=== PATIENT | female | born 1955 | race African-American/Black ===

== ENCOUNTER 2016-12-25 14:01 | Inpatient (IN) | payer MEDICARE, MEDICAID ==
[2016-12-25 15:38] LABS: #Basophils 0.1 thou/uL (0.0-0.2); #Eosinphils 0.2 thou/uL (0.0-0.7); #Lymphocytes 3.1 thou/uL (1.20-3.40); #Monocytes 0.9 thou/uL (0.11-0.59); #Neutrophils 4.1 thou/uL (1.40-6.50); %Basophils 0.7 % (0.0-1.0); %Eosinophils 2.6 % (0.0-10.0); %Lymphocytes 37.3 % (21.0-51.0); %Monocytes 10.4 % (0.0-10.0); Hematocrit 40.9 % (36.0-47.0); Mean Platelet Volume 8.2 fL (7.4-10.4); Red Blood Cell (RBC) Count 4.07 mill/uL (4.20-5.40); White Blood Cell (WBC) Count 8.4 thou/uL (4.8-10.8)
[2016-12-25 15:57] LABS: Lactic Acid - Sepsis 1.7 mmol/L (0.5-2.2)
--- NOTE | 2016-12-25 16:32 | HP ---
PRIMARY CARE PHYSICIAN: Edel Estrella M.D. REASON FOR ADMISSION: Sent from [facility] for SVT as well as urinary tract infection. HISTORY OF PRESENT ILLNESS: A 61-year-old -[place] female who has morbid obesity, hypertension, diabetes type 2, end-stage renal disease on hemodialysis Sunday, , and Sunday, who lives at [facility] where she was not feeling good. She was feeling funny in her chest. She was not having real chest pain, but she was not feeling normal in her chest and that is why she called nursing desk. At that time, they did EKG and patient was found with rapid heart rate and that is why she was advised to go to [facility]. At [facility], patient was found with SVT. She was planned for adenosine 6 mg, but before adenosine 6 mg, even she was converted back to normal sinus rhythm. With SVT episode, she was hypotensive. At the long term, patient did not have any nausea, vomiting. She denies any UTI symptoms. She denies any chest pain, palpitation. She denies any syncope. She denies any constipation or diarrhea. At [facility], the patient had routine blood test, which showed lactic acidosis, elevated troponin and her urinalysis was suggestive of urinary tract infection and that is why they sent her to our emergency room for further evaluation and treatment. PAST MEDICAL HISTORY: End-stage renal disease on hemodialysis, anemia of renal disease, secondary hyperparathyroidism of renal origin, diabetes type 2, morbid obesity, dyslipidemia, and peripheral neuropathy. PAST PSYCHIATRIC HISTORY: Anxiety and depression. PAST SURGICAL HISTORY: Tissue removed from neck suspected thyroid surgery, partial hysterectomy, hemodialysis access with AV fistula. SOCIAL HISTORY: Patient lives at [facility]. No history of tobacco, alcohol or illicit drug abuse. EMERGENCY ROOM COURSE: Patient is given cefepime 1 gram, vancomycin 1 gram, IV fluid. REVIEW OF SYSTEMS: The following complete review of systems was negative, unless otherwise mentioned in the HPI or below: Constitutional: Weight loss or gain, ability to conduct usual activities. Skin: Rash, itching. Eyes: Double vision, pain. ENT/Mouth: Nose bleeding, neck stiffness, pain, tenderness. Cardiovascular: Palpitations, dyspnea on exertion, orthopnea. Respiratory: Shortness of breath, wheezing, cough, hemoptysis, fever or night sweats. Gastrointestinal: Poor appetite, abdominal pain, heartburn, nausea, vomiting, constipation, or diarrhea. Genitourinary: Urgency, frequency, dysuria, nocturia. Musculoskeletal: Pain, swelling. Neurologic/Psychiatric: Anxiety, depression. Allergy/Immunologic: Skin rash, bleeding tendency. Please see my HPI for pertinent positive and negative. All other review of systems reviewed and negative except as mentioned in the HPI. FAMILY HISTORY: No strong family history of CAD, CVA or cancer. ALLERGY: No known drug allergy CURRENT HOME MEDICATION: We will verify home medication from long term PHYSICAL EXAMINATION: VITAL SIGNS: Currently, blood pressure 95/61, pulse 73 and regular, respiratory rate 16, temperature 98.6, saturation 93% on room air, and weight 132.4 kilograms. GENERAL: Patient is currently alert, awake on room air, morbidly obese, no obvious acute distress in sinus rhythm. HEAD: Normocephalic, atraumatic. EYES: Pupils round, reactive to light. Extraocular muscles intact. ENT: Oropharynx within normal limits. Moist mucous membranes. No oral lesions. No pharyngeal erythema, no exudate. NECK: Supple. Range of motion is normal. No meningeal signs of irritation, short neck. LUNGS: Clear to auscultation, though morbid obesity limiting examination. CARDIAC: S1, S2 regular without any murmur, though morbid obesity limiting examination. ABDOMEN: Morbid obesity limiting examination. No peritoneal signs, no guarding , no rigidity, no rebound. BACK: Examination unremarkable. No CVA tenderness. EXTREMITIES: Upper extremity, left upper extremity AV fistula with positive thrill. Passive movement of all joints are normal. Lower extremity, chronic lymphedema noted. SKIN: No skin rash. HEMATOLOGICAL SYSTEM: No lymphadenopathy. NEUROLOGIC: Grossly nonfocal examination. Speech normal. The patient moves all 4 limbs. Plantar bilateral flexor. PSYCHIATRIC: Normal affect. SIGNIFICANT LABORATORY DATA AND IMAGING: CBC: WBC 7.6, hemoglobin 12.2, and platelet 206. INR 2.5. D-dimer 0.32. BMP: Sodium 140, potassium 4.7, chloride 97, carbon dioxide 20, anion gap 28, BUN 73, creatinine 8.47, glucose 184, calcium 9.7, and lactic acid 3.2. LFT: AST 15, ALT 22, alkaline phosphatase 99, albumin 3.6, CK-MB 3.0, troponin I 0.040. BNP 28.1. Urinalysis suggestive of urinary tract infection. EKG strips showed at [facility] consistent with SVT and subsequently currently director of maintenance showing normal sinus rhythm. Chest x-ray based on my review, no acute cardiopulmonary process. ASSESSMENT AND PLAN/IMPRESSION: 1. Supraventricular tachycardia converted to normal sinus rhythm. We will monitor on telemetry floor for any recurrent supraventricular tachycardia. If this patient does have recurrent supraventricular tachycardia, then we will consult aligner for possible ablation. We will check thyroid function test. 2. Elevated troponin. We will do 3 sets of cardiac enzymes to rule out acute coronary syndrome. This elevated troponin could be from renal failure versus demand ischemia from supraventricular tachycardia. 3. Urinary tract infection. Patient does have abnormal urinalysis. We will continue with Rocephin 1 gram q.24 hours and Levaquin 500 mg every other day. We will follow up on urine culture result and based on culture result, we will change to oral antibiotic therapy. 4. Lactic acidosis, likely due to sepsis with urinary tract infection, will repeat lactic acid level tomorrow. 5. Sepsis secondary to urinary tract infection. Patient is on IV antibiotic therapy. We will follow up on culture result and change antibiotic therapy accordingly. 6. Elevated anion gap metabolic acidosis likely due to renal failure as well as lactic acidosis. We will repeat renal function test tomorrow. 7. Anemia with macrocytosis. We will continue Nephro-Radha one tablet p.o. daily. 8. Coagulopathy, etiology uncertain. We will verify the patient's home medication whether this patient is on any anticoagulation therapy or not. 9. End-stage renal disease on hemodialysis. Patient is due for dialysis tomorrow and that is why we will consult on-call xerox machine assembler for maintenance hemodialysis while in hospital. 10. Morbid obesity. Dietary education given and weight loss education given. 11. Secondary hyperparathyroidism of renal origin. We will continue Renvela 800 mg 2 tablets 3 times daily. 12. Anxiety with depression. We will continue Zoloft 100 mg p.o. daily. 13. Peripheral neuropathy. We will continue gabapentin 300 mg p.o. at bedtime. 14. Gastroesophageal reflux disease. We will continue Protonix 40 mg p.o. daily. 15. Diabetes type 2. We will continue glipizide 10 mg p.o. daily, insulin as per sliding scale protocol. Diabetic diet will be given. 16. Hypertension. We will continue metoprolol 100 mg extended release daily. 17. Dyslipidemia. We will continue lovastatin 40 mg equivalent at bedtime. CODE STATUS: The patient is FULL CODE. Patient's son is surrogate decision maker. Disposition plan based on clinical course. We are expecting patient's stay in hospital more than 2 midnights. Plan of care discussed with the patient and patient's son at bedside in the emergency room. ELIS
[2016-12-25] MEDS ORDERED: Senokot 8.6 MG TAB PO PRN (19:44)
[2016-12-25] MEDS ORDERED: Sodium Chloride 0.65% Nasal 44 ML BOT EA NARE PRN (19:44)
[2016-12-25] MEDS ORDERED: Diabetic Tussin 200 MG/10 ML UDCUP PO PRN (19:44)
[2016-12-25] MEDS ORDERED: Milk Of Magnesia 30 ML UDCUP PO PRN (19:44)
[2016-12-25] MEDS ORDERED: Dextrose 50% Abboject 50 ML SYRINGE SLOW IVP PRN (19:44)
[2016-12-25] MEDS ORDERED: Artificial Tears 18 DROP/0.9 ML EA EYE PRN (19:44)
[2016-12-25] MEDS ORDERED: Mag-Al 1200 mg/1200 mg/30 ML UDCUP PO PRN (19:44)
[2016-12-25] MEDS ORDERED: Loperamide HCl 2 MG CAP PO PRN (19:44)
[2016-12-25] MEDS ORDERED: cefTRIAXone\\ROCEPHIN 1 GM in Sodium Chloride 0.9% 100 ML IVPB SCH (19:44)
[2016-12-25] MEDS ORDERED: HumaLOG 300 UNITS/3 ML VIAL SC PRN ×2 (19:44)
[2016-12-25] MEDS ORDERED: Eucerin (Mineral Oil/Petrolatum,White) 30 gm Jar TOP PRN (19:44)
[2016-12-25] MEDS ORDERED: HYDROcodone/Acetaminophen 5/325 mg Tablet PO PRN (19:44)
[2016-12-25] MEDS ORDERED: Ondansetron HCl/PF 4 MG/2 ML Vial IVP PRN ×2 (19:44→19:52)
[2016-12-25] MEDS ORDERED: Dextrose 5% in Water 1,000 ML IV PRN (19:44)
[2016-12-25] MEDS ORDERED: Ondansetron ODT 4 MG TAB PO PRN (19:44)
[2016-12-25] MEDS ORDERED: Ondansetron ODT 4 MG TAB SL PRN (19:52)
[2016-12-25] MEDS ORDERED: Acetaminophen 325 MG TAB PO PRN (19:52)
[2016-12-25 20:26] LABS: Troponin I 0.083 ng/mL (< 0.028)
[2016-12-25 22:12] LABS: Troponin I 0.076 ng/mL (< 0.028)
[2016-12-25] MEDS: cefTRIAXone\\ROCEPHIN 1 GM in Sodium Chloride 0.9% 100 ML IVPB SCH (23:20)
[2016-12-26] VITALS: BMI 51.2
[2016-12-26] MEDS: Atorvastatin Calcium 10 MG TAB PO SCH ×2 (02:04→21:48)
[2016-12-26 05:36] LABS: #Basophils 0.1 thou/uL (0.0-0.2); #Eosinphils 0.3 thou/uL (0.0-0.7); %Basophils 0.8 % (0.0-1.0); %Eosinophils 3.2 % (0.0-10.0); %Lymphocytes 35.8 % (21.0-51.0); %Monocytes 12.3 % (0.0-10.0); Hematocrit 38.9 % (36.0-47.0); Mean Platelet Volume 8.1 fL (7.4-10.4); Red Blood Cell (RBC) Count 3.89 mill/uL (4.20-5.40); White Blood Cell (WBC) Count 8.4 thou/uL (4.8-10.8)
[2016-12-26 05:55] LABS: Anion Gap 25 mmol/L (10-20); BUN (Urea Nitrogen) 88 mg/dL (9.8-20.1); BUN/Creatinine Ratio 9.65; Calc. Creatinine Clearance 14 mL/min (70-130); Calcium 9.5 mg/dL (7.8-10.44); Carbon Dioxide 23 mmol/L (23-31); Chloride 98 mmol/L (98-107); Cholesterol 287 mg/dl (< 200 Desired); Estimated GFR-MDRD 5; LDL Cholesterol, Calculated 162 mg/dL; Phosphorus 6.7 mg/dL (2.3-4.7)
--- NOTE | 2016-12-26 06:21 | PDOC.EVN ---
Event Note - Event Note Event Note: RN called - Patient is hypotensive - Asymtomatic. Will cont to monitor. Change Toprol XL 100 daily to 50 BID
[2016-12-26] MEDS: Multivitamin W/ Minerals 1 TAB PO SCH (09:00)
[2016-12-26] MEDS: Folic Acid/Vit B Comp W-C PO SCH (09:00)
[2016-12-26] MEDS: Gabapentin 300 MG CAP PO SCH (09:00)
--- NOTE | 2016-12-26 13:09 | CON ---
DATE OF CONSULTATION: 12/26/2016 HISTORY OF PRESENT ILLNESS: Ms. Geiger is a 61-year-old black female with ESRD from hypertensive/d iabetic nephropathy and currently on maintenance hemodialysis. She is being followed up by Dr. Liz mckeon and Dr. Frank for her maintenance hemodialysis. We are now being consulted for her maintenan dialysis while she is at the hospital. REVIEW OF SYSTEMS: Positive for palpitations. No chest pain, no shortness of breath, no nausea, no vomiting, no diarrhea, no syncopal episode, no headache, no gross hematuria. No dysuria, no urinar y frequency. No diarrhea, no fever or chills. Appetite and energy level is fair. MEDICATIONS: Currently on [place] 5/325 q.4 hours, Maalox 30 mL q.6 hours p.r.n., aspirin 81 mg tab o nce daily, Lipitor 10 mg at bedtime, ceftriaxone 1 gram IV daily, Neurontin 300 mg at bedtime, hydra lazine 10 mg IV every 8 hours p.r.n., Humalog sliding scale, Levaquin 500 mg q.2 days, metoprolol britton ccinate 50 mg p.o. b.i.d., Renvela 800 mg 2 tabs t.i.d. with meals, vitamin B complex 1 tab daily. PAST MEDICAL HISTORY: 1. ESRD secondary to diabetic/hypertensive nephropathy. 2. Type 2 diabetes mellitus. 3. Hypertension. 4. Morbid obesity. 5. Dyslipidemia. 6. Peripheral neuropathy. PAST SURGICAL HISTORY: 1. Status post thyroid surgery. 2. Status post partial hysterectomy. 3. Status post AV fistula placement. 4. Status post colonoscopy. SOCIAL HISTORY: The patient is a [facility] patient. She is . Four children, retired [employer]. Education, 11th grade. No smoking, no alcohol intake, no blood transfusion. No IV drug abuse. ALLERGIES: No known drug allergies. TRAUMA: None. IMMUNIZATIONS: Up-to-date. HOSPITALIZATIONS: Please see past medical history. FAMILY HISTORY: No family history of ESRD. PHYSICAL EXAMINATION: VITAL SIGNS: Blood pressure is 105/59, heart rate 77, respiratory rate 14, temperature 98. GENERAL: Awake, alert, comfortable, not in overt distress, morbidly obese. SKIN: Adequate turgor. HEENT: Pinkish conjunctivae, anicteric sclerae. NECK: No neck mass, no carotid bruits, no JVD. CHEST: No deformities. LUNGS: Clear breath sounds. No wheezing, no crackles. HEART: Normal sinus rhythm. No murmur, no gallops or rubs. ABDOMEN: Globular, soft, nontender, no masses. EXTREMITIES: No edema, no deformities. NEUROLOGICAL: Awake, oriented to 3 spheres. Moving all extremities. No tremors or asterixis. LABORATORY DATA: On 12/26/2016, white count 8.4, hemoglobin 12.2. Sodium 141, potassium 5, chlorid e 98, carbon dioxide 23, BUN 88, creatinine 9.12, glucose 96, calcium 9.5, phosphorus 6.7, cholester ol 287. ASSESSMENT AND PLAN: 1. End-stage renal disease, stable. We will continue current maintenance hemodialysis of Sunday, , and Sunday. Again, fluid removal only as tolerated by the patient. We will attempt bet ween 3 and 4 liters of fluid removal. 2. Palpitation/supraventricular tachycardia - currently heart rate is much improved. Please note milagros oleary is currently on Toprol. 3. Anemia - No indication for any resumption of Epogen since hemoglobin is greater than 10. Overall, I agree with current management. We will continue to follow the patient while she is at [facility].
--- NOTE | 2016-12-26 15:30 | PDOC.PN ---
- Subjective Encounter Start Date: 12/26/16 Encounter Start Time: 08:15 -: old records requested/rev Patient seen and examined. No new complaints. No overnight events, no fever - Objective Resuscitation Status: Resuscitation Status FULL:Full Resuscitation MAR Reviewed: Yes Vital Signs & Weight: Vital Signs (12 hours) Temp Pulse Resp BP Pulse Ox 12/26/16 14:28 98.2 F 92 16 105/55 L 95 12/26/16 12:21 98 F 77 14 12/26/16 08:00 98 F 77 14 105/59 L 97 12/26/16 04:45 97.7 F 81 20 81/54 L 95 Weight Admit Weight 298 lb 9.6 oz Weight 298 lb 9.6 oz I&O: 12/25/16 12/26/16 12/27/16 06:59 06:59 06:59 Intake Total 360 Balance 360 Result Diagrams: 12/26/16 05:11 12/26/16 05:11 Additional Labs: Accuchecks 12/26/16 12/25/16 06:29 22:30 POC Glucose 76 186 H EKG Reviewed by me: Yes (nsr) Phys Exam - Physical Examination Constitutional: NAD HEENT: PERRLA, moist MMs, sclera anicteric Neck: no JVD, supple Respiratory: no wheezing, no rales, no rhonchi Cardiovascular: RRR, no significant murmur, no rub Gastrointestinal: soft, non-tender, no distention, positive bowel sounds morbid obesity Musculoskeletal: no edema, pulses present Neurological: non-focal, normal sensation, moves all 4 limbs Lymphatic: no nodes Psychiatric: normal affect, A&O x 3 Skin: no rash, normal turgor Dx/Plan (1) Demand ischemia Code(s): I24.8 - OTHER FORMS OF ACUTE ISCHEMIC HEART DISEASE Status: Acute (2) SVT (supraventricular tachycardia) Code(s): I47.1 - SUPRAVENTRICULAR TACHYCARDIA Status: Resolved (3) Sepsis Code(s): A41.9 - SEPSIS, UNSPECIFIED ORGANISM Status: Acute (4) UTI (urinary tract infection) Status: Acute (5) Anemia of renal disease Code(s): D63.1 - ANEMIA IN CHRONIC KIDNEY DISEASE Status: Chronic (6) Diabetes type 2, controlled Code(s): E11.9 - TYPE 2 DIABETES MELLITUS WITHOUT COMPLICATIONS Status: Chronic (7) Dyslipidemia Code(s): E78.5 - HYPERLIPIDEMIA, UNSPECIFIED Status: Chronic (8) ESRD (end stage renal disease) on dialysis Code(s): N18.6 - END STAGE RENAL DISEASE; Z99.2 - DEPENDENCE ON RENAL DIALYSIS Status: Chronic (9) Morbid obesity with BMI of 50.0-59.9, adult Code(s): E66.01 - MORBID (SEVERE) OBESITY DUE TO EXCESS CALORIES; Z68.43 - BODY MASS INDEX (BMI) 50-59.9 , ADULT Status: Chronic (10) Secondary hyperparathyroidism of renal origin Code(s): N25.81 - SECONDARY HYPERPARATHYROIDISM OF RENAL ORIGIN Status: Chronic - Plan cont current plan of care * continue rocephin and levaquin * follow on culture * medication reviewed as below * symptomatic treatment. * today plan for dialysis * selected home medication. Review of Systems - Review of Systems ENT: negative: Ear Pain, Ear Discharge, Nose Pain, Nose Discharge, Nose Congestion, Mouth Pain, Mouth Swelling, Throat Pain, Throat Swelling, Other Respiratory: negative: Cough, Dry, Shortness of Breath, Hemoptysis, SOB with Excertion, Pleuritic Pain, Sputum, Wheezing Cardiovascular: negative: Chest Pain, Palpitations, Orthopnea, Paroxysmal Noc. Dyspnea, Edema, Light Headedness, Other Gastrointestinal: negative: Nausea, Vomiting, Abdominal Pain, Diarrhea, Constipation, Melena, Hematochezia, Other Genitourinary: negative: Dysuria, Frequency, Incontinence, Hematuria, Retention , Other Musculoskeletal: negative: Neck Pain, Shoulder Pain, Arm Pain, Back Pain, Hand Pain, Leg Pain, Foot Pain, Other - Medications/Allergies Allergies/Adverse Reactions: Allergies Allergy/AdvReac Type Severity Reaction Status Date / Time tramadol Allergy Verified 12/26/16 06:03 Medications: Current Medications Acetaminophen (Tylenol) 650 mg PO Q4H PRN PRN Reason: Headache/Fever or Pain Hydrocodone Bitart/Acetaminophen ([place] 5/325) 1 tab PO Q4H PRN PRN Reason: Moderate Pain (4-6) Al Hydroxide/Mg Hydroxide (Maalox) 30 ml PO Q6H PRN PRN Reason: Heartburn or Indigestion Artificial Tears (Tears Naturale) 0 drop EA EYE PRN PRN PRN Reason: Dry Eyes Aspirin (Aspirin Chewable) 81 mg PO DAILY TONY Last Admin: 12/26/16 09:01 Dose: 81 mg Atorvastatin Calcium (Lipitor) 10 mg PO HS COUNT INCLUDES THE [facility] Last Admin: 12/26/16 02:04 Dose: Not Given Dextrose/Water (Dextrose 50%) 25 gm SLOW IVP PRN PRN PRN Reason: Hypoglycemia Gabapentin (Neurontin) 300 mg PO DAILY COUNT INCLUDES THE [facility] Last Admin: 12/26/16 09:00 Dose: 300 mg Glucagon (Glucagon) 1 mg IM PRN PRN PRN Reason: Hypoglycemia Guaifenesin (Robitussin Sf) 200 mg PO Q4H PRN PRN Reason: Cough Hydralazine HCl (Apresoline) 10 mg SLOW IVP Q4H PRN PRN Reason: Systolic BP > 180 Ceftriaxone Sodium 1 gm/ (Sodium Chloride) 100 mls @ 200 mls/hr IVPB Q24HR COUNT INCLUDES THE [facility] Last Admin: 12/25/16 23:20 Dose: 100 mls Levofloxacin 500 mg/ Device 100 mls @ 100 mls/hr IVPB Q2DAYS@2359 COUNT INCLUDES THE [facility] Last Admin: 12/25/16 23:59 Dose: 100 mls Dextrose/Water (D5w) 1,000 mls @ 0 mls/hr IV .Q0M PRN; As Directed PRN Reason: Hypoglycemia Insulin Human Lispro (Humalog) 0 units SC .MODERATE SLIDING SC PRN PRN Reason: Moderate Correctional Scale Insulin Human Lispro (Humalog) 0 units SC .BEDTIME SLIDING SC PRN PRN Reason: Bedtime Correctional Scale Iron/Minerals/Multivitamins (Theragran M) 1 tab PO DAILY COUNT INCLUDES THE [facility] Last Admin: 12/26/16 09:00 Dose: 1 tab Loperamide HCl (Imodium) 2 mg PO PRN PRN PRN Reason: Diarrhea/Loose Stools Magnesium Hydroxide (Milk Of Magnesium) 30 ml PO DAILYPRN PRN PRN Reason: Constipation Metoprolol Succinate (Toprol Xl) 50 mg PO BID COUNT INCLUDES THE [facility] Last Admin: 12/26/16 09:01 Dose: Not Given Mineral Oil/White Petrolatum (Eucerin Cream) 0 gm TOP BIDPRN PRN PRN Reason: Dry Skin Ondansetron HCl (Zofran Odt) 4 mg PO Q6H PRN PRN Reason: Nausea/Vomiting Ondansetron HCl (Zofran) 4 mg IVP Q6H PRN PRN Reason: Nausea/Vomiting Pantoprazole Sodium (Protonix) 40 mg PO DAILY COUNT INCLUDES THE [facility] Last Admin: 12/26/16 09:00 Dose: 40 mg Senna (Senokot) 2 tab PO HSPRN PRN PRN Reason: Constipation Sevelamer Carbonate (Renvela) 1,600 mg PO TID-[facility] Sodium Chloride (Flush - Normal Saline) 10 ml IVF Q12HR COUNT INCLUDES THE [facility] Last Admin: 12/26/16 09:01 Dose: 10 ml Sodium Chloride (Flush - Normal Saline) 10 ml IVF PRN PRN PRN Reason: Saline Flush Sodium Chloride ([place] Nasal [place] 0.65%) 0 ml EA NARE QIDPRN PRN PRN Reason: Nasal Congestion Vitamin B Complex/Vit C/Folic Acid (Nephro-Radha Tablet) 1 tab PO DAILY COUNT INCLUDES THE [facility] Last Admin: 12/26/16 09:00 Dose: 1 tab
[2016-12-26] MEDS: cefTRIAXone\\ROCEPHIN 1 GM in Sodium Chloride 0.9% 100 ML IVPB SCH (21:48)
[2016-12-27] MEDS: Sevelamer Carbonate 800 MG TAB PO SCH ×3 (08:19→16:39)
[2016-12-27] MEDS: Gabapentin 300 MG CAP PO SCH (08:19)
[2016-12-27] MEDS: Folic Acid/Vit B Comp W-C PO SCH (08:19)
[2016-12-27] MEDS: Multivitamin W/ Minerals 1 TAB PO SCH (08:19)
--- NOTE | 2016-12-27 09:23 | PDOC.PN ---
- Subjective Encounter Start Date: 12/27/16 Encounter Start Time: 09:20 Subjective: No f/c -: No cp/sob -: No n/v - Objective Resuscitation Status: Resuscitation Status FULL:Full Resuscitation MAR Reviewed: Yes Vital Signs & Weight: Vital Signs (12 hours) Temp Pulse Resp BP Pulse Ox 12/27/16 08:00 97.8 F 92 18 108/59 L 95 12/27/16 04:00 99.0 F 98 20 97/60 95 12/27/16 00:35 92 16 98/58 L 97 Weight Admit Weight 298 lb 9.6 oz Weight 298 lb 9.6 oz I&O: 12/26/16 12/27/16 12/28/16 06:59 06:59 06:59 Intake Total 600 Output Total 2000 Balance -1400 Result Diagrams: 12/26/16 05:11 12/26/16 05:11 Additional Labs: Accuchecks 12/27/16 12/26/16 12/26/16 05:48 20:44 16:58 POC Glucose 121 H 169 H 179 H Phys Exam - Physical Examination Constitutional: NAD HEENT: moist MMs, sclera anicteric Neck: no nodes, no JVD Respiratory: no wheezing, no rales, no rhonchi Cardiovascular: no significant murmur, no rub Gastrointestinal: soft, non-tender, positive bowel sounds Neurological: non-focal Psychiatric: normal affect, A&O x 3 Skin: no rash, normal turgor Dx/Plan (1) Demand ischemia Code(s): I24.8 - OTHER FORMS OF ACUTE ISCHEMIC HEART DISEASE Status: Acute (2) Sepsis Code(s): A41.9 - SEPSIS, UNSPECIFIED ORGANISM Status: Acute (3) UTI (urinary tract infection) Status: Acute (4) Anemia of renal disease Code(s): D63.1 - ANEMIA IN CHRONIC KIDNEY DISEASE Status: Chronic (5) Diabetes type 2, controlled Code(s): E11.9 - TYPE 2 DIABETES MELLITUS WITHOUT COMPLICATIONS Status: Chronic (6) ESRD (end stage renal disease) on dialysis Code(s): N18.6 - END STAGE RENAL DISEASE; Z99.2 - DEPENDENCE ON RENAL DIALYSIS Status: Chronic (7) SVT (supraventricular tachycardia) Code(s): I47.1 - SUPRAVENTRICULAR TACHYCARDIA Status: Resolved - Plan ESRD on HD (TTS) * avoid nephrotoxic agents * check renal labs in AM UTI/Sepsis * continue Abx * check WBC in AM SVT (HR better) * continue BB * monitor BP and HR closely in tele
[2016-12-27] MEDS: Acetaminophen 325 MG TAB PO PRN (11:05)
[2016-12-27] MEDS: Atorvastatin Calcium 10 MG TAB PO SCH (21:53)
[2016-12-27] MEDS: cefTRIAXone\\ROCEPHIN 1 GM in Sodium Chloride 0.9% 100 ML IVPB SCH (22:00)
[2016-12-28 06:09] LABS: #Basophils 0.1 thou/uL (0.0-0.2); #Eosinphils 0.2 thou/uL (0.0-0.7); #Neutrophils 3.7 thou/uL (1.40-6.50); %Basophils 1.3 % (0.0-1.0); %Eosinophils 2.7 % (0.0-10.0); %Lymphocytes 37.9 % (21.0-51.0); %Monocytes 12.2 % (0.0-10.0); Hematocrit 38.6 % (36.0-47.0); Mean Platelet Volume 8.3 fL (7.4-10.4); Red Blood Cell (RBC) Count 3.85 mill/uL (4.20-5.40)
[2016-12-28 06:25] LABS: Anion Gap 22 mmol/L (10-20); BUN (Urea Nitrogen) 62 mg/dL (9.8-20.1); BUN/Creatinine Ratio 7.66; Calc. Creatinine Clearance 15 mL/min (70-130); Calcium 9.6 mg/dL (7.8-10.44); Carbon Dioxide 24 mmol/L (23-31); Chloride 99 mmol/L (98-107); Estimated GFR-MDRD 6; Phosphorus 6.7 mg/dL (2.3-4.7)
--- NOTE | 2016-12-28 08:07 | PDOC.PN ---
- Subjective Encounter Start Date: 12/28/16 Encounter Start Time: 08:06 Subjective: No f/c -: No n/v -: No cp/sob - Objective Resuscitation Status: Resuscitation Status FULL:Full Resuscitation MAR Reviewed: Yes Vital Signs & Weight: Vital Signs (12 hours) Temp Pulse Resp BP Pulse Ox 12/28/16 04:00 98.2 F 92 18 92/54 L 96 12/28/16 00:00 86 16 92/51 L Weight Admit Weight 298 lb 9.6 oz Weight 298 lb 9.6 oz I&O: 12/27/16 12/28/16 12/29/16 06:59 06:59 06:59 Intake Total 600 480 Output Total 2000 Balance -1400 480 Result Diagrams: 12/28/16 05:25 12/28/16 05:25 Additional Labs: Accuchecks 12/28/16 12/27/16 12/27/16 05:43 20:10 16:35 POC Glucose 117 H 200 H 147 H 12/27/16 11:57 POC Glucose 149 H Phys Exam - Physical Examination Constitutional: NAD HEENT: moist MMs, sclera anicteric Neck: no nodes, no JVD Respiratory: no wheezing, no rales, no rhonchi Cardiovascular: no significant murmur, no rub Gastrointestinal: soft, non-tender, positive bowel sounds Neurological: non-focal Psychiatric: normal affect Skin: no rash, normal turgor Dx/Plan (1) Demand ischemia Code(s): I24.8 - OTHER FORMS OF ACUTE ISCHEMIC HEART DISEASE Status: Acute (2) Sepsis Code(s): A41.9 - SEPSIS, UNSPECIFIED ORGANISM Status: Acute (3) UTI (urinary tract infection) Status: Acute (4) Anemia of renal disease Code(s): D63.1 - ANEMIA IN CHRONIC KIDNEY DISEASE Status: Chronic (5) Diabetes type 2, controlled Code(s): E11.9 - TYPE 2 DIABETES MELLITUS WITHOUT COMPLICATIONS Status: Chronic (6) ESRD (end stage renal disease) on dialysis Code(s): N18.6 - END STAGE RENAL DISEASE; Z99.2 - DEPENDENCE ON RENAL DIALYSIS Status: Chronic (7) SVT (supraventricular tachycardia) Code(s): I47.1 - SUPRAVENTRICULAR TACHYCARDIA Status: Resolved - Plan ESRD on HD (TTS) * avoid nephrotoxic agents * check renal labs in AM UTI/Sepsis * continue Abx * check WBC in AM SVT (HR better) * continue BB * monitor BP and HR closely in tele Hypotension * appreciate fluid management, per nephrology (spoke with Dr. Jarquin about this) * check BP and HR in AM Dispo: HD today, monitor BP and home tomorrow if BP stable.
--- NOTE | 2016-12-28 08:32 | PRG ---
DATE OF SERVICE: 12/28/2016 RENAL MEDICINE SUBJECTIVE: Ms. Geiger is a 61-year-old black female with ESRD and currently undergoing hemodialys is. The Renal Service is following her for maintenance hemodialysis. I am currently dialyzing the patient and I am at her bedside. She voices no new complaints. The patient denies any chest pain o r shortness of breath. PHYSICAL EXAMINATION: VITAL SIGNS: Blood pressure was 92/54 and currently is 120/70, heart rate 92, respiratory rate 18, temperature 98.2, and pulse ox 96%. GENERAL: Awake, morbidly obese, comfortable, not in distress. SKIN: Adequate turgor. HEENT: Pinkish conjunctivae, anicteric sclerae. NECK: No neck mass, no carotid bruits, no JVD. CHEST: No deformities. LUNGS: Clear breath sounds, no wheezing or crackles heard. HEART: Normal sinus rhythm. No murmur, no gallops or rubs. ABDOMEN: Globular, soft, nontender, no masses. EXTREMITIES: No edema, no deformities. MEDICATIONS: Medications of 12/28/2016 was reviewed. LABORATORY DATA: Laboratories of 12/28/2016; white count 8, hemoglobin 12.1. Sodium 140, potassium 4.5, chloride 99, carbon dioxide 24, BUN 62, creatinine 8.09, glucose 123, calcium is noted at 9.6, phosphorus 6.7, and albumin 3.2. ASSESSMENT AND PLAN: 1. Hyperphosphatemia. Continuing Renvela 800 mg 1-2 tabs t.i.d. with meals. 2. End-stage renal disease, stable. Tolerating current hemodialysis regimen. I am currently super vising her dialysis. Will attempt to remove around 1.5 liter fluid removal only as tolerated by the patient. 3. Anemia - hemoglobin is noted to be within normal. No indication for any Epogen with this patien t at the present time. Agree with current management.
[2016-12-28] MEDS: Sevelamer Carbonate 800 MG TAB PO SCH ×3 (08:39→16:09)
[2016-12-28] MEDS: Folic Acid/Vit B Comp W-C PO SCH (12:37)
[2016-12-28] MEDS: Multivitamin W/ Minerals 1 TAB PO SCH (12:37)
[2016-12-28] MEDS: Gabapentin 300 MG CAP PO SCH (12:38)
[2016-12-28] MEDS: Acetaminophen 325 MG TAB PO PRN (14:50)
[2016-12-28] MEDS: Atorvastatin Calcium 10 MG TAB PO SCH (21:26)
[2016-12-29] MEDS: cefTRIAXone\\ROCEPHIN 1 GM in Sodium Chloride 0.9% 100 ML IVPB SCH (00:27)
[2016-12-29 05:50] LABS: #Basophils 0.1 thou/uL (0.0-0.2); #Eosinphils 0.2 thou/uL (0.0-0.7); #Lymphocytes 2.7 thou/uL (1.20-3.40); #Monocytes 0.8 thou/uL (0.11-0.59); #Neutrophils 3.2 thou/uL (1.40-6.50); %Eosinophils 2.6 % (0.0-10.0); %Lymphocytes 39.3 % (21.0-51.0); %Monocytes 11.3 % (0.0-10.0); Hematocrit 39.9 % (36.0-47.0); Mean Platelet Volume 7.8 fL (7.4-10.4); Red Blood Cell (RBC) Count 3.96 mill/uL (4.20-5.40); White Blood Cell (WBC) Count 6.9 thou/uL (4.8-10.8)
[2016-12-29 06:23] LABS: Anion Gap 18 mmol/L (10-20); BUN (Urea Nitrogen) 36 mg/dL (9.8-20.1); BUN/Creatinine Ratio 6.34; Calc. Creatinine Clearance 22 mL/min (70-130); Calcium 9.8 mg/dL (7.8-10.44); Carbon Dioxide 26 mmol/L (23-31); Chloride 99 mmol/L (98-107); Estimated GFR-MDRD 9; Phosphorus 4.9 mg/dL (2.3-4.7)
--- NOTE | 2016-12-29 09:04 | PDOC.PN ---
- Subjective Encounter Start Date: 12/29/16 Encounter Start Time: 07:30 -: old records requested/rev Patient seen and examined. No new complaints. No overnight events, last night transient low bp but she was asymptomatic - Objective Resuscitation Status: Resuscitation Status FULL:Full Resuscitation MAR Reviewed: Yes Vital Signs & Weight: Vital Signs (12 hours) Temp Pulse Resp BP Pulse Ox 12/29/16 08:05 97.9 F 88 20 99/66 96 12/29/16 04:30 92/56 L 12/29/16 04:00 97.9 F 90 18 72/51 L 95 Weight Admit Weight 298 lb 9.6 oz Weight 298 lb 9.6 oz I&O: 12/28/16 12/29/16 12/30/16 06:59 06:59 06:59 Intake Total 480 480 Output Total 1600 Balance 480 -1120 Result Diagrams: 12/29/16 05:38 12/29/16 05:38 Additional Labs: Accuchecks 12/28/16 12/28/16 12/28/16 20:49 16:28 12:40 POC Glucose 167 H 140 H 98 EKG Reviewed by me: Yes Phys Exam - Physical Examination Constitutional: NAD HEENT: PERRLA, moist MMs, sclera anicteric Neck: no JVD, supple Respiratory: no wheezing, no rales, no rhonchi Cardiovascular: RRR, no significant murmur, no rub Gastrointestinal: soft, non-tender, no distention, positive bowel sounds Musculoskeletal: no edema, pulses present Neurological: non-focal Psychiatric: normal affect Skin: no rash, normal turgor Dx/Plan (1) Demand ischemia Code(s): I24.8 - OTHER FORMS OF ACUTE ISCHEMIC HEART DISEASE Status: Acute (2) SVT (supraventricular tachycardia) Code(s): I47.1 - SUPRAVENTRICULAR TACHYCARDIA Status: Resolved (3) Sepsis Code(s): A41.9 - SEPSIS, UNSPECIFIED ORGANISM Status: Acute (4) UTI (urinary tract infection) Status: Acute (5) Anemia of renal disease Code(s): D63.1 - ANEMIA IN CHRONIC KIDNEY DISEASE Status: Chronic (6) Diabetes type 2, controlled Code(s): E11.9 - TYPE 2 DIABETES MELLITUS WITHOUT COMPLICATIONS Status: Chronic (7) Dyslipidemia Code(s): E78.5 - HYPERLIPIDEMIA, UNSPECIFIED Status: Chronic (8) ESRD (end stage renal disease) on dialysis Code(s): N18.6 - END STAGE RENAL DISEASE; Z99.2 - DEPENDENCE ON RENAL DIALYSIS Status: Chronic (9) Morbid obesity with BMI of 50.0-59.9, adult Code(s): E66.01 - MORBID (SEVERE) OBESITY DUE TO EXCESS CALORIES; Z68.43 - BODY MASS INDEX (BMI) 50-59.9 , ADULT Status: Chronic (10) Secondary hyperparathyroidism of renal origin Code(s): N25.81 - SECONDARY HYPERPARATHYROIDISM OF RENAL ORIGIN Status: Chronic - Plan cont current plan of care * cortisol is boderline will do cortisol stim test before discharge * likely discharge later today * medication reviewed as below * symptomatic treatment. Review of Systems - Review of Systems ENT: negative: Ear Pain, Ear Discharge, Nose Pain, Nose Discharge, Nose Congestion, Mouth Pain, Mouth Swelling, Throat Pain, Throat Swelling, Other Respiratory: negative: Cough, Dry, Shortness of Breath, Hemoptysis, SOB with Excertion, Pleuritic Pain, Sputum, Wheezing Cardiovascular: negative: Chest Pain, Palpitations, Orthopnea, Paroxysmal Noc. Dyspnea, Edema, Light Headedness, Other Gastrointestinal: negative: Nausea, Vomiting, Abdominal Pain, Diarrhea, Constipation, Melena, Hematochezia, Other Genitourinary: negative: Dysuria, Frequency, Incontinence, Hematuria, Retention , Other Musculoskeletal: negative: Neck Pain, Shoulder Pain, Arm Pain, Back Pain, Hand Pain, Leg Pain, Foot Pain, Other - Medications/Allergies Allergies/Adverse Reactions: Allergies Allergy/AdvReac Type Severity Reaction Status Date / Time tramadol Allergy Verified 12/26/16 06:03 Medications: Current Medications Acetaminophen (Tylenol) 650 mg PO Q4H PRN PRN Reason: Headache/Fever or Pain Last Admin: 12/28/16 14:50 Dose: 650 mg Hydrocodone Bitart/Acetaminophen ([place] 5/325) 1 tab PO Q4H PRN PRN Reason: Moderate Pain (4-6) Al Hydroxide/Mg Hydroxide (Maalox) 30 ml PO Q6H PRN PRN Reason: Heartburn or Indigestion Artificial Tears (Tears Naturale) 0 drop EA EYE PRN PRN PRN Reason: Dry Eyes Aspirin (Aspirin Chewable) 81 mg PO DAILY TONY Last Admin: 12/28/16 12:37 Dose: 81 mg Atorvastatin Calcium (Lipitor) 10 mg PO HS [facility] Last Admin: 12/28/16 21:26 Dose: 10 mg Cosyntropin (Cortrosyn) 250 mcg SLOW IVP WILLCALL [facility] Dextrose/Water (Dextrose 50%) 25 gm SLOW IVP PRN PRN PRN Reason: Hypoglycemia Gabapentin (Neurontin) 300 mg PO DAILY [facility] Last Admin: 12/28/16 12:38 Dose: 300 mg Glucagon (Glucagon) 1 mg IM PRN PRN PRN Reason: Hypoglycemia Guaifenesin (Robitussin Sf) 200 mg PO Q4H PRN PRN Reason: Cough Hydralazine HCl (Apresoline) 10 mg SLOW IVP Q4H PRN PRN Reason: Systolic BP > 180 Ceftriaxone Sodium 1 gm/ (Sodium Chloride) 100 mls @ 200 mls/hr IVPB Q24HR [facility] Last Admin: 12/29/16 00:27 Dose: 100 mls Dextrose/Water (D5w) 1,000 mls @ 0 mls/hr IV .Q0M PRN; As Directed PRN Reason: Hypoglycemia Insulin Human Lispro (Humalog) 0 units SC .MODERATE SLIDING SC PRN PRN Reason: Moderate Correctional Scale Insulin Human Lispro (Humalog) 0 units SC .BEDTIME SLIDING SC PRN PRN Reason: Bedtime Correctional Scale Iron/Minerals/Multivitamins (Theragran M) 1 tab PO DAILY [facility] Last Admin: 12/28/16 12:37 Dose: 1 tab Levofloxacin (Levaquin) 500 mg PO Q2D@0600 [facility] Loperamide HCl (Imodium) 2 mg PO PRN PRN PRN Reason: Diarrhea/Loose Stools Magnesium Hydroxide (Milk Of Magnesium) 30 ml PO DAILYPRN PRN PRN Reason: Constipation Metoprolol Succinate (Toprol Xl) 50 mg PO BID [facility] Last Admin: 12/28/16 21:26 Dose: 50 mg Mineral Oil/White Petrolatum (Eucerin Cream) 0 gm TOP BIDPRN PRN PRN Reason: Dry Skin Ondansetron HCl (Zofran Odt) 4 mg PO Q6H PRN PRN Reason: Nausea/Vomiting Ondansetron HCl (Zofran) 4 mg IVP Q6H PRN PRN Reason: Nausea/Vomiting Pantoprazole Sodium (Protonix) 40 mg PO DAILY [facility] Last Admin: 12/28/16 12:37 Dose: 40 mg Senna (Senokot) 2 tab PO HSPRN PRN PRN Reason: Constipation Sevelamer Carbonate (Renvela) 1,600 mg PO TID-WM [facility] Last Admin: 12/28/16 16:09 Dose: 1,600 mg Sodium Chloride (Flush - Normal Saline) 10 ml IVF Q12HR [facility] Last Admin: 12/28/16 21:26 Dose: 10 ml Sodium Chloride (Flush - Normal Saline) 10 ml IVF PRN PRN PRN Reason: Saline Flush Sodium Chloride ([place] Nasal [place] 0.65%) 0 ml EA NARE QIDPRN PRN PRN Reason: Nasal Congestion Vitamin B Complex/Vit C/Folic Acid (Nephro-Radha Tablet) 1 tab PO DAILY [facility] Last Admin: 12/28/16 12:37 Dose: 1 tab
[2016-12-29] MEDS ORDERED: Cosyntropin 250 MCG VIAL SLOW IVP SCH (09:15)
[2016-12-29] MEDS: Multivitamin W/ Minerals 1 TAB PO SCH (09:35)
[2016-12-29] MEDS: Sevelamer Carbonate 800 MG TAB PO SCH ×2 (09:35→12:29)
[2016-12-29] MEDS: Folic Acid/Vit B Comp W-C PO SCH (09:35)
[2016-12-29] MEDS: Gabapentin 300 MG CAP PO SCH (09:36)
--- NOTE | 2016-12-29 10:01 | DIS ---
DATE OF ADMISSION: 12/25/2016 DATE OF DISCHARGE: 12/29/2016 PRIMARY CARE PHYSICIAN: Edel Estrella M.D. DISCHARGE DISPOSITION: [facility], [place]. PRIMARY DISCHARGE DIAGNOSES: 1. Episode of supraventricular tachycardia, resolved. 2. Sepsis. 3. Demand ischemia of myocardium. 4. Urinary tract infection. SECONDARY DISCHARGE DIAGNOSES: Secondary hyperparathyroidism of renal origin, morbid obesity with body mass index 51, end-stage renal disease on hemodialysis , dyslipidemia, diabetes type 2, anemia of renal disease, and physical deconditioning. PRIMARY PROCEDURE/OPERATION: Maintenance hemodialysis while in hospital. RADIOLOGICAL INVESTIGATION: Chest x-ray was unremarkable. SIGNIFICANT LABORATORY DATA: WBC 6.9, hemoglobin 12.5, MCV 101.0, platelet 210. BMP; sodium 139, potassium 4.0, BUN 36, creatinine 5.68, phosphorus 4.9, albumin 3.3, random cortisol 3.70. Hepatitis B surface antigen negative. Blood culture and urine culture negative. DISCHARGE MEDICATIONS: Levaquin 500 mg p.o. every other day for 5 tablets, Nephro-Radha one tablet p.o. daily, Lipitor 10 mg p.o. at bedtime, Toprol-XL 50 mg p.o. daily, and Protonix 40 mg p.o. daily. Continue following medications; Tylenol 325 mg q.6 hourly p.r.n., Maalox 20 mL p.o. at bedtime p.r.n., aspirin 81 mg p.o. daily, gabapentin 300 mg p.o. at bedtime, lidocaine patch daily, multivitamin 1 tablet p.o. daily, MiraLax 17 grams p.o. daily p.r.n., Zoloft 100 mg p.o. daily, Renvela 800 mg p.o. t.i.d., Zocor 40 mg p.o. at bedtime, vitamin B complex 1 capsule p.o. daily, Glucotrol- XL 10 mg p.o. daily. CONTRAINDICATIONS: None. CODE STATUS: FULL CODE. INPATIENT EVENT MANAGER: Dr. Jarquin was following for maintenance hemodialysis. ALLERGIES: TRAMADOL. DISCHARGE PLAN: Post hospital, the patient will follow with primary care physician, Dr. Estrella at custodial. HOSPITAL COURSE: A 61-year-old female who lives at [facility] who was admitted by me. Please see my HPI for further details. This patient was not feeling good at [facility]. She was having mild funny feeling in her chest. She was taken to [place] [facility] where she had episode of SVT that was resolved by itself. The patient was hypotensive there. The patient was transferred to our hospital because she was also having urinary tract infection. We admitted to telemetry floor. We observed on telemetry floor and she did not have any further SVT episode. She had elevated troponins, which was related to demand ischemia. Her urinary tract infection was treated with Rocephin and Levaquin. On discharge, we changed to p.o. Levaquin for another 5 days. Her lactic acidosis was resolved. Her sepsis resolved. Her elevated anion gap metabolic acidosis was related with renal failure as well as lactic acidosis that also improved. Patient was getting maintenance hemodialysis with Dr. Jarquin while in hospital. She had coagulopathy of uncertain etiology, but we suspected from sepsis. While in hospital, she had episode of hypotension and that is why we did a random cortisol check and it was borderline low and that is why we are doing cosyntropin stim test before discharge and if patient does have positive finding suggestive of adrenal insufficiency, then she will need low dose of steroids as well as Florinef therapy to prevent further hypotension. The patient is seen and examined at bedside today. Please see my progress note from today for further details. Paperwork for discharge done. Discharge medication reconciliation done. The patient is medically stable for discharge later on today. Total time spent on discharge day 31 minutes. MTDD
[2016-12-29 11:48] VITALS: BP 98/73; TEMP 97.7
[2016-12-29] MEDS ORDERED: Heparin 10,000 UNITS/ 10 ML VIAL ONE (15:35)
--- NOTE | 2017-01-02 15:17 | EKG ---
Test Reason : Blood Pressure : / mmHG Vent. Rate : 071 BPM Atrial Rate : 071 BPM P-R Int : 148 ms QRS Dur : 094 ms QT Int : 434 ms P-R-T Axes : -22 -44 037 degrees QTc Int : 471 ms Normal sinus rhythm Left axis deviation Possible Anteroseptal infarct , age undetermined Abnormal ECG Confirmed by BENNY VALLE D.O. ([id number]), film or videotape editor PRERNA MOON ([id number]) on 01/02/2017 3:17:26 PM Referred By: Confirmed By:BENNY VALLE D.O.
== END 2016-12-29 16:36 | DRG 871 ==
LOC: ERS 14:01 → ERHOLD 15:48 → 2SE 18:01 → 2NO 12-26 09:07
PROVIDERS: ADMIT Internal Medicine; ATTEND Internal Medicine
PROC: 5A1D60Z (ICD-10-PCS; principal; 2016-12-26)
DX: A41.9 Sepsis, unspecified organism (principal); N18.6 End stage renal disease; E87.2 Acidosis; I12.0 Hypertensive chronic kidney disease with stage 5 chronic kidney disease or end stage renal disease; I24.8 Other forms of acute ischemic heart disease; N25.81 Secondary hyperparathyroidism of renal origin; I47.1 Supraventricular tachycardia; N39.0 Urinary tract infection, site not specified; Z68.43 Body mass index [BMI] 50.0-59.9, adult; E11.22 Type 2 diabetes mellitus with diabetic chronic kidney disease; E66.01 Morbid (severe) obesity due to excess calories; Z99.2 Dependence on renal dialysis; D63.1 Anemia in chronic kidney disease; E11.42 Type 2 diabetes mellitus with diabetic polyneuropathy; F41.9 Anxiety disorder, unspecified; F32.9 Major depressive disorder, single episode, unspecified; D75.89 Other specified diseases of blood and blood-forming organs; K21.9 Gastro-esophageal reflux disease without esophagitis; E78.5 Hyperlipidemia, unspecified; Z79.82 Long term (current) use of aspirin; Z88.8 Allergy status to other drugs, medicaments and biological substances; Z79.4 Long term (current) use of insulin
CPT/HCPCS: 36415; 36416; 80061; 80069; 80400; 82533; 83605; 83880; 84443; 85025; 87340; 90935; 93005; 96365; A4216; G0257; J0696; J0834; J1644; J1956; J2405; J7050

== ENCOUNTER 2018-08-07 17:20 | Emergency (ER) | payer MEDICARE, OTHER | END 2018-08-07 20:33 | LOC: ERS 17:20 | DX: I73.9 Peripheral vascular disease, unspecified (principal); E11.9 Type 2 diabetes mellitus without complications; E78.5 Hyperlipidemia, unspecified; I10 Essential (primary) hypertension; Z79.899 Other long term (current) drug therapy; Z79.82 Long term (current) use of aspirin; Z79.01 Long term (current) use of anticoagulants | CPT/HCPCS: 99283 ==

== ENCOUNTER 2021-12-16 09:35 | Observation (INO) | payer MEDICARE, MEDICAID ==
[2021-12-16 10:40] LABS: #Basophils 0.1 thou/uL (0.0-0.2); #Eosinphils 0.1 thou/uL (0.0-0.7); #Lymphocytes 2.3 thou/uL (1.20-3.40); #Monocytes 0.8 thou/uL (0.11-0.59); #Neutrophils 5.5 thou/uL (1.40-6.50); %Basophils 0.7 % (0.0-1.0); %Eosinophils 1.5 % (0.0-10.0); %Lymphocytes 26.6 % (21.0-51.0); %Monocytes 8.5 % (0.0-10.0); %Neutrophils 62.8 % (42.0-75.0); Mean Corpuscular HGB CONC 31.7 g/dL (32.0-36.0); Mean Corpuscular Hemoglobin 32.3 pg (27.0-31.0); Mean Platelet Volume 8.7 fL (7.4-10.4); Platelet Count 158 thou/uL (130-400); RBC Distribution Width 15.5 % (11.5-14.5); White Blood Cell (WBC) Count 8.8 thou/uL (4.8-10.8)
[2021-12-16] MEDS ORDERED: Aspirin Chewable 81 MG TAB ONE (12:08)
[2021-12-16] MEDS ORDERED: hydrALAZINE 20 MG/ML VIAL SLOW IVP PRN (12:54)
[2021-12-16] MEDS ORDERED: Acetaminophen 325 MG TAB PO PRN (12:56)
[2021-12-16 13:02] LABS: ALT (SGPT) 9 U/L (8-55); AST (SGOT) 21 U/L (5-34); Albumin 3.4 g/dL (3.4-4.8); Alkaline Phosphatase 65 U/L (40-110); Anion Gap 18 mmol/L (10-20); BUN (Urea Nitrogen) 33 mg/dL (9.8-20.1); Bilirubin, Total 0.7 mg/dL (0.2-1.2); Calc. Creatinine Clearance 0 mL/min (70-130); Calcium 9.7 mg/dL (7.8-10.44); Carbon Dioxide 25 mmol/L (23-31); Chloride 97 mmol/L (98-107); Estimated GFR 7; Globulin 3.5 g/dL (2.4-3.5); Glucose 194 mg/dL (80-115); Protein, Total 6.9 g/dL (5.8-8.1); Sodium 136 mmol/L (136-145)
[2021-12-16 13:06] LABS: CKMB 0.7 ng/mL (0-6.6)
[2021-12-16 14:24] LABS: Lactic Acid 1.7 mmol/L (0.5-2.2)
[2021-12-16 14:44] LABS: Troponin I 0.024 ng/mL (< 0.028)
[2021-12-16 15:08] LABS: Hemoglobin A1c 6.8 % (4.0-6.0)
[2021-12-16 17:22] VITALS: BMI 52.1
[2021-12-16 17:54] LABS: Troponin I 0.028 ng/mL (< 0.028)
[2021-12-16] MEDS ORDERED: Dextrose 5% in Water 1,000 ML IV PRN (20:42)
[2021-12-16] MEDS ORDERED: Dextrose 50% Abboject 50 ML SYRINGE SLOW IVP PRN (20:42)
[2021-12-16] MEDS ORDERED: Carbidopa/Levodopa 10-100 mg Tablet PO SCH (21:00)
[2021-12-16] MEDS ORDERED: Heparin 5,000 UNITS/ML VIAL SC SCH (21:00)
[2021-12-16] MEDS: Atorvastatin Calcium 40 MG TAB PO SCH (21:37)
[2021-12-16] MEDS: Apixaban 5 MG TAB PO SCH (21:37)
[2021-12-16] MEDS: Gabapentin 300 MG CAP PO SCH (21:37)
[2021-12-16] MEDS: Carbidopa/Levodopa 25-100 mg Tablet PO SCH (21:38)
[2021-12-16] MEDS: Famotidine/PF 20 mg/2ml Vial SLOW IVP SCH (21:38)
[2021-12-16] MEDS: Insulin Glargine 30 UNITS/0.3 ML VIAL SC SCH (21:38)
[2021-12-17 05:46] LABS: #Eosinphils 0.3 thou/uL (0.0-0.7); #Lymphocytes 2.6 thou/uL (1.20-3.40); #Monocytes 0.8 thou/uL (0.11-0.59); %Basophils 0.7 % (0.0-1.0); %Eosinophils 4.5 % (0.0-10.0); %Lymphocytes 38.8 % (21.0-51.0); %Monocytes 11.7 % (0.0-10.0); %Neutrophils 44.3 % (42.0-75.0); Mean Corpuscular HGB CONC 31.6 g/dL (32.0-36.0); Mean Corpuscular Hemoglobin 31.7 pg (27.0-31.0); Mean Platelet Volume 8.4 fL (7.4-10.4); Platelet Count 169 thou/uL (130-400); RBC Distribution Width 15.1 % (11.5-14.5); Red Blood Cell (RBC) Count 3.48 mill/uL (4.20-5.40); White Blood Cell (WBC) Count 6.8 thou/uL (4.8-10.8)
[2021-12-17 06:10] LABS: Cardiac Risk 4.5 (Less than 4.5)
[2021-12-17] MEDS: Gabapentin 300 MG CAP PO SCH ×3 (09:39→22:04)
[2021-12-17] MEDS: Carbidopa/Levodopa 25-100 mg Tablet PO SCH ×3 (09:40→22:04)
[2021-12-17] MEDS: Amiodarone 200 MG TAB PO SCH (09:41)
[2021-12-17] MEDS: Docusate 100 MG CAP PO SCH (09:43)
[2021-12-17] MEDS: Aspirin 81 mg Enteric Coated Tablet PO SCH (11:39)
[2021-12-17] MEDS: Apixaban 5 MG TAB PO SCH ×2 (11:40→22:04)
[2021-12-17 16:19] LABS: HBSAg Index 0.29 S/CO (0-0.99); Hep B Surf Ag Non-Reactive S/CO (NonReactive)
[2021-12-17] MEDS: Famotidine/PF 20 mg/2ml Vial SLOW IVP SCH (22:06)
[2021-12-17] MEDS: Atorvastatin Calcium 40 MG TAB PO SCH (22:06)
[2021-12-17] MEDS: Insulin Glargine 30 UNITS/0.3 ML VIAL SC SCH (22:18)
[2021-12-18 05:23] LABS: #Eosinphils 0.3 thou/uL (0.0-0.7); #Lymphocytes 2.1 thou/uL (1.20-3.40); #Monocytes 0.8 thou/uL (0.11-0.59); #Neutrophils 3.8 thou/uL (1.40-6.50); %Basophils 0.5 % (0.0-1.0); %Eosinophils 4.6 % (0.0-10.0); Hemoglobin 11.5 g/dL (12.0-16.0); Mean Corpuscular HGB CONC 32.4 g/dL (32.0-36.0); Mean Corpuscular Volume 98.7 fL (78.0-98.0); Mean Platelet Volume 8.2 fL (7.4-10.4); Platelet Count 184 thou/uL (130-400); RBC Distribution Width 14.9 % (11.5-14.5); Red Blood Cell (RBC) Count 3.58 mill/uL (4.20-5.40); White Blood Cell (WBC) Count 7.1 thou/uL (4.8-10.8)
[2021-12-18] MEDS: HumaLOG 300 UNITS/3 ML VIAL SC PRN ×2 (06:06→11:30)
[2021-12-18] MEDS: Aspirin 81 mg Enteric Coated Tablet PO SCH (08:20)
[2021-12-18] MEDS: Gabapentin 300 MG CAP PO SCH ×2 (08:20→14:41)
[2021-12-18] MEDS: Amiodarone 200 MG TAB PO SCH (08:22)
[2021-12-18] MEDS: Carbidopa/Levodopa 25-100 mg Tablet PO SCH ×2 (08:22→14:41)
[2021-12-18] MEDS: Apixaban 5 MG TAB PO SCH (08:22)
[2021-12-18] MEDS: Docusate 100 MG CAP PO SCH (08:22)
[2021-12-18 11:55] VITALS: BP 97/55; TEMP 97.3
== END 2021-12-18 15:27 ==
LOC: ERS 09:35 → ERHOLD 12:15 → NEURO 16:01
PROVIDERS: ADMIT Internal Medicine; ATTEND Internal Medicine
DX: R29.810 Facial weakness (principal); R47.81 Slurred speech; I13.11 Hypertensive heart and chronic kidney disease without heart failure, with stage 5 chronic kidney disease, or end stage renal disease; E11.22 Type 2 diabetes mellitus with diabetic chronic kidney disease; N18.6 End stage renal disease; D63.1 Anemia in chronic kidney disease; K21.9 Gastro-esophageal reflux disease without esophagitis; G20 Parkinson's disease; M75.121 Complete rotator cuff tear or rupture of right shoulder, not specified as traumatic; M19.011 Primary osteoarthritis, right shoulder; E78.5 Hyperlipidemia, unspecified; I48.0 Paroxysmal atrial fibrillation; I69.351 Hemiplegia and hemiparesis following cerebral infarction affecting right dominant side; E66.01 Morbid (severe) obesity due to excess calories; Z68.43 Body mass index [BMI] 50.0-59.9, adult; Z79.01 Long term (current) use of anticoagulants; Z79.4 Long term (current) use of insulin; Z79.84 Long term (current) use of oral hypoglycemic drugs; Z79.899 Other long term (current) drug therapy; Z88.5 Allergy status to narcotic agent; Z88.8 Allergy status to other drugs, medicaments and biological substances; Z99.2 Dependence on renal dialysis; Z20.822 Contact with and (suspected) exposure to COVID-19
CPT/HCPCS: 70450 ×2; 71045; 73060; 80061; 82553; 82962 ×3; 83036; 83605; 84484 ×2; 85025 ×2; 87040; 87077; 87149 ×2; 87340; 93005; 93971; 99285; U0003; U0005; 36415; 36416; 80053; 82274; 84443; 96374; 96376; G0378; J1815; S0028